=== PATIENT | female | born 1990 | race Caucasian/White ===

== ENCOUNTER 2017-05-30 14:27 | Emergency (ER) | payer OTHER ==
--- NOTE | ~2017-05-30 | US84 ---
[id number] [address] [address] [id number] E MR#: [id number] Acc #: [id number] NAME: MICHAEL KIM : 1990 SEX: F STUDY DATE/TIME: 05/30/2017 15:31 UNIT: SED ROOM: STUDY DESCRIPTION: US LE Veins Complete Rodri Stdy Attending Physician: Jon Trinidad M.D. Ordering Physician: Jon Trinidad M.D. Primary Care Physician: No Primary Care Physician MEDICAL IMAGING REPORT This report is preliminary unless electronic signature is present. EXAM Bilateral lower extremity venous duplex ultrasound, 05/30/2017. HISTORY 27-year-old female with bilateral lower extremity pain for 1 day. COMPARISON None. FINDINGS Real time escobedo-scale, color Doppler, spectral Doppler analysis of the bilateral lower extremity deep venous systems demonstrates normal venous waveforms with normal compressibility and augmentation throughout. No evidence of bilateral lower extremity deep venous thrombosis. IMPRESSION Negative for bilateral lower extremity DVT. Dictated by... Raulito Friend M.D. THIS IS AN ELECTRONICALLY VERIFIED REPORT Raulito Friend M.D. at 05/31/2017 2:14 PM ROSE/braden TD: 05/31/2017 11:00 JOB #: [id number] MEDICAL IMAGING REPORT Page 1 of 1
--- NOTE | ~2017-05-30 | EKG ---
PATIENT: MICHAEL KIM UNIT #: [id number] Ventricular Rate: 116 BPM Atrial Rate: 116 BPM P-R Interval: 150 ms QRS Duration: 86 ms Q-T Interval: 322 ms QTC Calculation(Bezet): 447 ms P Murray: 67 degrees Calculated R Murray: 58 degrees Calculated T Murray: 9 degrees Diagnosis Line: Sinus tachycardia Diagnosis Line: T wave abnormality, consider inferior ischemia Diagnosis Line: Abnormal ECG Diagnosis Line: No previous ECGs available Diagnosis Line: Confirmed by TK HAILE MD ([id number]) on Diagnosis Line: 05/31/2017 3:50:20 PM INTERPRETING MD: LAZARA PRIETO
[~2017-05-30 14:27] MED LIST: BACTRIM DS TABL1 TA1 PO; BENADRYL PO; MACROBID 100 M100 MG PO; PREDNISONE PO; PRENATAL MULTI1 EAC1 PO; PRENATAL1 TA1 PO; PYRIDIUM100 MG PO
[2017-05-30] MEDS ORDERED: NO MEDICATIONS (14:43)
[2017-05-30 15:16] LABS: URINE SOURCE CLEAN CATCH
[2017-05-30 15:17] LABS: BASOPHIL% 0.2 % (0-2.5); HEMOGLOBIN 12.7 gm/dL (12.0-16.0); LYMPHOCYTE# 0.7 X10e3 (1.0-3.5); LYMPHOCYTE% 7.5 % (17.0-45.0); MEAN CORPUSCULAR HEMOGLOBIN 27.8 PG (28-34); MEAN CORPUSCULAR HGB CONC 34.3 g/dL (30-36); MEAN PLATELET VOLUME 10.9 FL (6.5-11.5); MONOCYTE# 0.5 X10e3 (0-1.0); NEUTROPHIL# 7.5 X10e3 (1.5-7.1); NEUTROPHIL% 86.3 % (40-75); PLATELET COUNT 177 X10e3 (140-420); RED BLOOD COUNT 4.57 X10e (3.90-5.30); RED CELL DISTRIBUTION WIDTH 14.5 % (11.0-15.5); WHITE BLOOD COUNT 8.7 X10e3 (4.0-10.5)
[2017-05-30 15:19] LABS: URINE APPEARANCE CLEAR; URINE BILIRUBIN NEG (NEG); URINE BLOOD 3+ (NEG); URINE COLOR YELLOW; URINE GLUCOSE NEG (NORM); URINE KETONE NEG (NEG); URINE LEUKOCYTE ESTERASE 1+ (NEG); URINE NITRATE NEG (NEG); URINE PROTEIN NEG (NEG)
[2017-05-30 15:20] LABS: MICRO INDICATED? YES
[2017-05-30 15:23] LABS: DIFF IND NO
[2017-05-30 15:26] LABS: ALBUMIN SERUM 4.5 g/dL (3.5-5.0); BILIRUBIN,TOTAL 1.1 mg/dL (0.2-2.0); BUN/CREATININE RATIO 21.66; CALCIUM SERUM 8.3 mg/dL (8.4-10.2); CREATININE SERUM 0.6 mg/dL (0.6-1.4); GLOM FILT RATE Estimated 124.9 mL/min (>60); POTASSIUM 3.3 mmol/L (3.5-5.1)
[2017-05-30 15:26] LABS: CULTURE INDICATED? YES; URINE BACTERIA 1+ (NEG); URINE SQUAMOUS EPITHELIAL CELL MODERATE /[HPF]; URINE WBC 50-100 /[HPF] (0-5)
== END 2017-05-30 17:23 | disposition home or self-care (01) ==
LOC: SED 14:27
PROVIDERS: Emergency Medicine
DX: M79.662 Pain in left lower leg (principal); M79.661 Pain in right lower leg; N39.0 Urinary tract infection, site not specified; E87.6 Hypokalemia
CPT/HCPCS: 36415; 80053; 81003; 84703; 85025; 87086; 93005; 93970; 96360; 99284